=== PATIENT | male | born 2000 | race African-American/Black ===

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

== ENCOUNTER 2022-04-10 05:10 | Emergency (ER) | payer MEDICAID, OTHER ==
[~2022-04-10] VITALS: Ht 182.8 cm; Wt 72.8 kg
[2022-04-10 05:35] LABS: HEMATOCRIT 48 % (40-54); HEMOGLOBIN 16.5 g/dL (13.3-17.7); MEAN CORPUSCULAR HEMOGLOBIN 28 pg (25-34); MEAN CORPUSCULAR HGB CONC 35 g/dL (32-36); MEAN CORPUSCULAR VOLUME 82 fL (80-99); MEAN PLATELET VOLUME 10.3 fL (9.0-12.2); PLATELET COUNT 234 10^3/uL (130-400); WHITE BLOOD COUNT 21.2 10^3/uL (4.3-11.0)
[2022-04-10 05:46] LABS: ALBUMIN 4.4 GM/DL (3.2-4.5); POTASSIUM 4.1 MMOL/L (3.6-5.0)
[2022-04-10 05:48] LABS: CALCIUM 9.1 MG/DL (8.5-10.1)
[2022-04-10 05:49] LABS: TOTAL PROTEIN 7.7 GM/DL (6.4-8.2)
[2022-04-10 05:50] LABS: BILIRUBIN,TOTAL 0.4 MG/DL (0.1-1.0)
[2022-04-10 05:53] LABS: CREATININE SERUM 1.17 MG/DL (0.60-1.30)
[2022-04-10 05:54] LABS: BILIRUBIN,DIRECT 0.1 MG/DL (0.0-0.3); BILIRUBIN,INDIRECT 0.3 MG/DL
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
[2022-04-10] MEDS ORDERED: CATHETER FLUSH 10 ML SYR IV PRN (06:30)
[2022-04-10] MEDS ORDERED: IOHEXOL 350 MG/ML 100 ML (OMNIPAQUE 350) VIAL IV ONE (06:30)
[2022-04-10] MEDS ORDERED: NS 100 ML (IVPB) BAG IV ONE (06:30)
[2022-04-10 06:59] LABS: BILIRUBIN,URINE NEGATIVE (NEGATIVE); CLARITY,URINE CLEAR; COLOR,URINE YELLOW; GLUCOSE, URINE (UA) NEGATIVE (NEGATIVE); KETONES,URINE NEGATIVE (NEGATIVE); LEUKOCYTE ESTERASE ,URINE NEGATIVE (NEGATIVE); NITRITE,URINE NEGATIVE (NEGATIVE); PH,URINE 5.5 (5-9); PROTEIN,URINE NEGATIVE (NEGATIVE)
[2022-04-10 07:08] LABS: BACTERIA,URINE NEGATIVE /HPF
[2022-04-10 07:09] LABS: AMPHETAMINE SCREEN, URINE NEGATIVE (NEGATIVE); BARBITURATE SCREEN URINE NEGATIVE (NEGATIVE); BENZODIAZEPINES SCREEN URINE NEGATIVE (NEGATIVE); CANNABINOID SCREEN, URINE NEGATIVE (NEGATIVE); COCAINE SCREEN URINE NEGATIVE (NEGATIVE); METHADONE STAT NEGATIVE (NEGATIVE); OPIATE SCREEN URINE NEGATIVE (NEGATIVE); OXYCODONE STAT NEGATIVE (NEGATIVE); PROPOXYPHENE STAT NEGATIVE (NEGATIVE); TRICYCLIC ANTIDEPRESSANTS SCRE NEGATIVE (NEGATIVE)
[2022-04-10 07:10] LABS: HYALINE CASTS, URINE 0-2 /LPF
[2022-04-10] MEDS ORDERED: fentaNYL INJ 100 MCG/2 ML AMP IVP ONE (07:30)
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
[2022-04-10] MEDS ORDERED: ACHD5005 PO (07:38)
[2022-04-10 08:22] VITALS: BP 122/82
== END 2022-04-10 08:22 | disposition home or self-care (01) ==
LOC: EDUNIT# 05:10 → ER 05:12
DX: S06.0X0A Concussion without loss of consciousness, initial encounter (principal); S42.291A Other displaced fracture of upper end of right humerus, initial encounter for closed fracture; S00.83XA Contusion of other part of head, initial encounter; S80.02XA Contusion of left knee, initial encounter; K03.81 Cracked tooth; Z28.310 Unvaccinated for COVID-19; V89.0XXA Person injured in unspecified motor-vehicle accident, nontraffic, initial encounter; Y92.410 Unspecified street and highway as the place of occurrence of the external cause
CPT/HCPCS: 70450; 70486; 71045; 71260; 72125; 72170; 73030; 74177; 80048; 80076; 80306; 81000; 85027; 93005; 93041; 99284; G0480; 36415; 80320

== ENCOUNTER 2022-06-06 08:25 | Outpatient (RCR) | payer OTHER ==
[~2022-06-06 08:25] MED LIST changes: +ACHD5005 PO
== END 2022-06-07 | disposition home or self-care (01) ==
PROVIDERS: ATTEND Physician Assistant
DX: S42.201D Unspecified fracture of upper end of right humerus, subsequent encounter for fracture with routine healing (principal); J45.909 Unspecified asthma, uncomplicated; V89.2XXD Person injured in unspecified motor-vehicle accident, traffic, subsequent encounter

== ENCOUNTER → 2022-07-08 | Outpatient (RCR) | payer OTHER | END | disposition home or self-care (01) | PROVIDERS: ATTEND Physician Assistant | DX: S42.201D Unspecified fracture of upper end of right humerus, subsequent encounter for fracture with routine healing (principal); J45.909 Unspecified asthma, uncomplicated; X58.XXXD Exposure to other specified factors, subsequent encounter ==

== ENCOUNTER 2022-07-11 10:49 | Outpatient (RCR) | payer OTHER | END 2022-07-11 13:07 | disposition home or self-care (01) | PROVIDERS: ATTEND Physician Assistant | DX: S42.201D Unspecified fracture of upper end of right humerus, subsequent encounter for fracture with routine healing (principal); J45.909 Unspecified asthma, uncomplicated; V89.2XXD Person injured in unspecified motor-vehicle accident, traffic, subsequent encounter ==

== ENCOUNTER 2022-07-27 21:24 | Emergency (ER) | payer SELFPAY ==
[~2022-07-27] VITALS: Ht 177.8 cm; Wt 72.8 kg
--- NOTE | 2022-07-27 22:14 | ED Respiratory ---
General Chief Complaint: Cough/Cold/Flu Symptoms Stated Complaint: COUGH/SOA Nursing Triage Note: Pt ambulates to ED 6 with c/o shortness of breath, chest tightness and cough x 2 days, advises it got worse tonight. 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 Source: patient Exam Limitations: no limitations History of Present Illness Date Seen by Provider: Jul 27, 2022 Time Seen by Provider: 21:40 Initial Comments Patient is a 22 yo M who presents to the ED with 2 days of cough, shortness of breath, and chest tightness. Patient states he took an albuterol nebulizer treatment prior to arrival with significant improvement in the symptoms. He is accompanied by his mother. Mother states patient has had a few hours of very persistent coughing which led to them presenting to the emergency department. Patient has not had a fever. Denies any nasal congestion or body aches. Denies any chest pain but states before he took his albuterol treatment that his chest felt very tight. Allergies and Home Medications Allergies Coded Allergies: No Known Allergies (Unverified Allergy, Mild, 03/11/09) Patient Home Medication List Home Medication List Reviewed: Yes Hydrocodone/Acetaminophen (Hydrocodone-Acetamin 5-325 mg) 5 Mg-325 Mg Tablet, 1- 2 TAB PO Q4H PRN for PAIN-MODERATE (5-7) Prescribed by: FOZIA MARTINEZ on 04/10/22 0738 Review of Systems Review of Systems Constitutional: no symptoms reported EENTM: no symptoms reported Respiratory: see HPI, cough, short of breath Cardiovascular: see HPI Gastrointestinal: no symptoms reported Genitourinary: no symptoms reported Musculoskeletal: no symptoms reported Skin: no symptoms reported Past Vmfmmqe-Hflqox-Wegcfl Hx Patient Social History Tobacco Use?: No Smokeless Tobacco Frequency: Current Everyday User Use of E-Cig and/or Vaping dev: No Substance use?: No Alcohol Use?: Yes Alcohol Frequency: Once in a while Pt feels they are or have been: No Immunizations Up To Date Influenza Vaccine Up-to-Date: No; Not Current First/Initial COVID19 Vaccinat: None Seasonal Allergies Seasonal Allergies: Yes Past Medical History Surgeries: No Respiratory: Yes Asthma Cardiac: No Neurological: No Genitourinary: No Gastrointestinal: No Musculoskeletal: No Endocrine: No HEENT: No Cancer: No Psychosocial: No Integumentary: No Blood Disorders: No Family Medical History No Pertinent Family Hx Physical Exam Vital Signs - First Documented 07/27/22 21:45 Temp 36.6 Pulse 106 Resp 18 B/P (MAP) 138/84 (102) Pulse Ox 95 O2 Delivery Room Air Capillary Refill : Height: 5'10.00" Weight: 1lbs. oz. 0.261837ar; 23.00 BMI Method:Stated General Appearance: WD/WN, no apparent distress HEENT: PERRL/EOMI, normal ENT inspection, TMs normal, pharynx normal Neck: non-tender, full range of motion, supple, normal inspection Respiratory: chest non-tender, lungs clear, normal breath sounds, no respiratory distress, no accessory muscle use Cardiovascular: regular rate, rhythm Gastrointestinal: normal bowel sounds, non tender, soft Extremities: normal range of motion, non-tender, normal inspection, no pedal edema, no calf tenderness Neurologic/Psychiatric: no motor/sensory deficits, alert, normal mood/affect, oriented x 3 Skin: normal color, warm/dry Progress/Results/Core Measures Suspected Sepsis SIRS Temperature: Pulse: 106 Respiratory Rate: 18 Blood Pressure 138 /84 Mean: 102 Results/Orders Lab Results Laboratory Tests Test 07/27/22 21:59 Range/Units Influenza Type A (RT-PCR) Not Detected Not Detecte Influenza Type B (RT-PCR) Not Detected Not Detecte SARS-CoV-2 RNA (RT-PCR) Not Detected Not Detecte My Orders Orders - JAY JAY BALDERRAMA WATER PURIFIER Covid 19 Inhouse Test (07/27/22 21:48) Influenza A And B By Pcr (07/27/22 21:48) Isolation Central Supply Req (07/27/22 21:48) Chest Pa/Lat (2 View) (07/27/22 21:48) Dexamethasone Tablet (Decadron Tablet) (07/27/22 23:00) Vital Signs/I&O 07/27/22 07/27/22 07/27/22 21:45 21:45 23:15 Temp 36.6 Pulse 106 91 Resp 18 18 B/P (MAP) 138/84 (102) 113/85 Pulse Ox 95 96 O2 Delivery Room Air Room Air Room Air Capillary Refill : Blood Pressure Mean: 102 Progress Note : Progress Note Patient is nontoxic and well-hydrated on exam. No adventitious lung sounds or increased work of breathing noted. Vital signs are reassuring. No hypoxia noted. Chest x-ray obtained which is acutely negative read. COVID and flu test negative. Given patient had significant improvement with albuterol treatment, asthma exacerbation is a likely etiology of his current symptoms. This may have been mediated by some mild viral URI or environmental exposure. He was given a dose of Decadron here. Will discharge home with recommendations for supportive care and frequent albuterol usage to manage symptomology. Follow-up with PCP. Return precautions for urgent symptomology discussed. Patient verbalized understanding. Departure Impression Primary Impression: Wheezing-associated respiratory infection (WARI) Disposition: 01 HOME, SELF-CARE Condition: Stable Departure-Patient Inst. Decision time for Depature: 22:55 Referrals: NO,LOCAL PHYSICIAN (PCP/Family) Primary Care Physician Patient Instructions: Asthma, Adult ED JAY JAY BALDERRAMA APRN Jul 27, 2022 22:14
[2022-07-27 23:15] VITALS: BP 113/85
--- NOTE | 2022-07-28 06:51 | Diagnostic Imaging Report ---
INDICATION: Cough and congestion x2 days, shortness of air, history of asthma.. TECHNIQUE: Two view chest 10:11 PM CORRELATION STUDY: 04/10/2022 FINDINGS: The heart size, mediastinal configuration and pulmonary vasculature are within normal limits. The lungs are clear with no consolidating infiltrate. There is no significant pleural effusion or pneumothorax. Mild rightward curvature and/or rotation thoracic spine. Partial visualization of internal fixation hardware over the proximal right humerus. IMPRESSION: 1. Negative for acute abnormality of the chest. Dictated by: Dictated on workstation # [id number]
== END 2022-07-27 23:15 | disposition home or self-care (01) ==
LOC: EDUNIT# 21:24 → ER 21:26
DX: J98.8 Other specified respiratory disorders (principal); R06.2 Wheezing; F17.200 Nicotine dependence, unspecified, uncomplicated; Z20.822 Contact with and (suspected) exposure to COVID-19; Z28.310 Unvaccinated for COVID-19
CPT/HCPCS: 71046; 87636

== ENCOUNTER 2022-09-14 18:30 | Observation (INO) | payer SELFPAY ==
[~2022-09-14] VITALS: Ht 177.8 cm; Wt 66.7 kg
[2022-09-14] MEDS ORDERED: RT-ALBUTEROL SULF 2.5 MG/3 ML PRE-MIX VIAL ONE (18:41)
[2022-09-14] MEDS ORDERED: NS IV 1000 ML 1,000 ML IV ONE (18:45)
[2022-09-14] MEDS ORDERED: methylPREDNISolone 125 MG (Solu-MEDROL) VIAL IVP ONE (18:45)
[2022-09-14] MEDS ORDERED: MAGNESIUM 1 GM/100 ML IVPB 100 ML IV ONE ×2 (18:45→19:15)
[2022-09-14] MEDS ORDERED: RT-ALBUTEROL SULF 2.5 MG/3 ML PRE-MIX VIAL INH ONE (18:45)
[2022-09-14 18:58] LABS: BASOPHILS # (AUTO) 0.1 10^3/uL (0.0-0.1); BASOPHILS % (AUTO) 1 % (0-10); EOSINOPHILS # (AUTO) 0.9 10^3/uL (0.0-0.3); EOSINOPHILS % (AUTO) 5 % (0-10); HEMATOCRIT 49 % (40-54); LYMPHOCYTES # (AUTO) 4.3 10^3/uL (1.0-4.0); LYMPHOCYTES % (AUTO) 25 % (12-44); MEAN CORPUSCULAR HEMOGLOBIN 28 pg (25-34); MEAN CORPUSCULAR HGB CONC 34 g/dL (32-36); MEAN CORPUSCULAR VOLUME 82 fL (80-99); MEAN PLATELET VOLUME 10.3 fL (9.0-12.2); MONOCYTES # (AUTO) 1.1 10^3/uL (0.0-1.0); MONOCYTES % (AUTO) 7 % (0-12); NEUTROPHILS # (AUTO) 10.6 10^3/uL (1.8-7.8); NEUTROPHILS % (AUTO) 62 % (42-75); PLATELET COUNT 296 10^3/uL (130-400); WHITE BLOOD COUNT 17.1 10^3/uL (4.3-11.0)
[2022-09-14 18:59] LABS: ALBUMIN 4.6 GM/DL (3.2-4.5)
[2022-09-14 19:00] LABS: CHLORIDE 102 MMOL/L (98-107); POTASSIUM 3.9 MMOL/L (3.6-5.0); SODIUM 140 MMOL/L (135-145)
[2022-09-14 19:01] LABS: CALCIUM 9.6 MG/DL (8.5-10.1)
[2022-09-14 19:02] LABS: GLUCOSE 89 MG/DL (70-105); TOTAL PROTEIN 7.8 GM/DL (6.4-8.2)
[2022-09-14 19:03] LABS: CARBON DIOXIDE 22 MMOL/L (21-32)
[2022-09-14 19:04] LABS: BILIRUBIN,TOTAL 0.7 MG/DL (0.1-1.0)
[2022-09-14 19:05] LABS: ALKALINE PHOSPHATASE 78 U/L (40-136); CREATININE SERUM 1.08 MG/DL (0.60-1.30); GFR ESTIMATED 100
--- NOTE | 2022-09-14 19:05 | ED Respiratory ---
General Chief Complaint: Respiratory Problems Stated Complaint: SOA Nursing Triage Note: PT AMB TO RM 3 PT CO OF SOA, STATES HAS HX OF ASTHMA, PT HAS HAD PERSISTANT COUGH FOR A COUPLE DAYS AND HAS HAD INCREASED SOA. DENIES FEVERS. Source: patient Exam Limitations: no limitations History of Present Illness Date Seen by Provider: Sep 14, 2022 Time Seen by Provider: 18:55 Initial Comments This is a 22 yo male with history of Asthma who presented to the ER via POV with c/o difficulty breathing. Used 2 Albuterol nebs just before ED arrival with no relief of symptoms. Upon arrival is is in moderate distress and unable to speak in short sentences. Has never had this severe of Asthma exacerbation, no previous intubations for Asthma. Denies tobacco or drug use. Several friends smoke and Vape and he does have secondary smoke exposure. No recent illness. No fever, chills, chest pain, nausea, vomiting, diarrhea, abdominal pain. Mom denies any additional past medical problems. Has repair of right humerus. Allergies and Home Medications Allergies Coded Allergies: No Known Allergies (Unverified Allergy, Mild, 03/11/09) Patient Home Medication List Home Medication List Reviewed: Yes Hydrocodone/Acetaminophen (Hydrocodone-Acetamin 5-325 mg) 5 Mg-325 Mg Tablet, 1- 2 TAB PO Q4H PRN for PAIN-MODERATE (5-7) Prescribed by: FOZIA MARTINEZ on 04/10/22 0738 Review of Systems Review of Systems Constitutional: see HPI Past Pkzpvws-Wasuyv-Eexgqg Hx Patient Social History Tobacco Use?: No Substance use?: No Alcohol Use?: Yes Alcohol type: Beer Alcohol Frequency: Once in a while Pt feels they are or have been: No Immunizations Up To Date Influenza Vaccine Up-to-Date: Yes; Up-to-Date First/Initial COVID19 Vaccinat: None Second COVID19 Vaccination [place]: None Third COVID19 Vaccination Date: None Seasonal Allergies Seasonal Allergies: Yes Past Medical History Surgery/Hospitalization HX: ASHTMA, SHOULDER SURGERY Surgeries: No Respiratory: Yes Asthma Cardiac: No Neurological: No Genitourinary: No Gastrointestinal: No Musculoskeletal: No Endocrine: No HEENT: No Cancer: No Psychosocial: No Integumentary: No Blood Disorders: No Family Medical History No Pertinent Family Hx Physical Exam Vital Signs - First Documented 09/14/22 18:33 Temp 36.2 Pulse 147 Resp 18 B/P (MAP) 120/85 (97) Pulse Ox 95 O2 Delivery Nasal Cannula O2 Flow Rate 2.00 Capillary Refill : Less Than 3 Seconds Height: 5'10.00" Weight: 1lbs. oz. 0.411084vs; 20.00 BMI Method:Stated General Appearance: WD/WN, moderate distress Eyes: Bilateral Eye Normal Inspection, Bilateral Eye PERRL, Bilateral Eye EOMI HEENT: PERRL/EOMI, normal ENT inspection, pharynx normal Neck: full range of motion, normal inspection Respiratory: respiratory distress, decreased breath sounds, accessory muscle use Cardiovascular: normal peripheral pulses, regular rate, rhythm, no murmur Gastrointestinal: normal bowel sounds, non tender, soft Extremities: normal range of motion, normal inspection, normal capillary refill Neurologic/Psychiatric: no motor/sensory deficits; No alert (fatigued); oriented x 3 Skin: normal color, warm/dry Progress/Results/Core Measures Suspected Sepsis SIRS Temperature: Pulse: 147 Respiratory Rate: 18 Laboratory Tests 09/14/22 18:33: White Blood Count 17.1H Blood Pressure 120 /85 Mean: 97 Laboratory Tests 09/14/22 18:33: Creatinine 1.08, Platelet Count 296, Total Bilirubin 0.7 Results/Orders Lab Results Laboratory Tests Test 09/14/22 18:33 09/14/22 18:37 09/14/22 19:31 Range/Units White Blood Count 17.1 H 4.3-11.0 10^3/uL Red Blood Count 6.06 H 4.30-5.52 10^6/uL Hemoglobin 17.0 13.3-17.7 g/dL Hematocrit 49 40-54 % Mean Corpuscular Volume 82 80-99 fL Mean Corpuscular Hemoglobin 28 25-34 pg Mean Corpuscular Hemoglobin Concent 34 32-36 g/dL Red Cell Distribution Width 13.6 10.0-14.5 % Platelet Count 296 130-400 10^3/uL Mean Platelet Volume 10.3 9.0-12.2 fL Immature Granulocyte % (Auto) 0 % Neutrophils (%) (Auto) 62 42-75 % Lymphocytes (%) (Auto) 25 12-44 % Monocytes (%) (Auto) 7 0-12 % Eosinophils (%) (Auto) 5 0-10 % Basophils (%) (Auto) 1 0-10 % Neutrophils # (Auto) 10.6 H 1.8-7.8 10^3/uL Lymphocytes # (Auto) 4.3 H 1.0-4.0 10^3/uL Monocytes # (Auto) 1.1 H 0.0-1.0 10^3/uL Eosinophils # (Auto) 0.9 H 0.0-0.3 10^3/uL Basophils # (Auto) 0.1 0.0-0.1 10^3/uL Immature Granulocyte # (Auto) 0.0 0.0-0.1 10^3/uL Neutrophils % (Manual) 56 % Lymphocytes % (Manual) 29 % Monocytes % (Manual) 10 % Eosinophils % (Manual) 5 % Microcytosis SLIGHT Sodium Level 140 135-145 MMOL/L Potassium Level 3.9 3.6-5.0 MMOL/L Chloride Level 102 98-107 MMOL/L Carbon Dioxide Level 22 21-32 MMOL/L Anion Gap 16 H 5-14 MMOL/L Blood Urea Nitrogen 9 7-18 MG/DL Creatinine 1.08 0.60-1.30 MG/DL Estimat Glomerular Filtration Rate 100 BUN/Creatinine Ratio 8 Glucose Level 89 70-105 MG/DL Calcium Level 9.6 8.5-10.1 MG/DL Corrected Calcium 8.5-10.1 MG/DL Total Bilirubin 0.7 0.1-1.0 MG/DL Aspartate Amino Transf (AST/SGOT) 39 H 5-34 U/L Alanine Aminotransferase (ALT/SGPT) 34 0-55 U/L Alkaline Phosphatase 78 40-136 U/L Total Protein 7.8 6.4-8.2 GM/DL Albumin 4.6 H 3.2-4.5 GM/DL My Orders Orders - CHAUNCEY ASHRAF LIVE STUDY MANAGER Albuterol Pre-Mix Nebs (Rt) (Proventil (09/14/22 18:45) Svn Small Volume Nebulizer (09/14/22 18:41) Magnesium 1 Gm/100 Ml Ivpb (Magnesium Patel (09/14/22 18:45) Ns Iv 1000 Ml (Sodium Chloride 0.9%) (09/14/22 18:45) Methylprednisolone Sod Succ (Solu-Medrol (09/14/22 18:45) Chest 1 View, Ap/Pa Only (09/14/22 18:51) Cbc With Automated Diff (09/14/22 18:51) Comprehensive Metabolic Panel (09/14/22 18:51) Manual Differential (09/14/22 18:33) Magnesium 1 Gm/100 Ml Ivpb (Magnesium Patel (09/14/22 19:15) Covid 19 Inhouse Test (09/14/22 19:16) Influenza A And B By Pcr (09/14/22 19:16) Arterial Blood Gas (09/14/22 19:20) Medications Given in ED Current Medications Medications Dose Ordered Sig/Xavi Route Start Time Stop Time Status Last Admin Dose Admin Albuterol Sulfate 12.5 mg ONCE ONCE INH 09/14/22 18:45 09/14/22 18:46 DC 09/14/22 18:48 12.5 MG Magnesium Sulfate/ Dextrose 100 ml @ 100 mls/hr ONCE ONCE IV 09/14/22 19:15 09/14/22 20:14 09/14/22 19:09 100 MLS/HR Magnesium Sulfate/ Dextrose 100 ml @ 0 mls/hr ONCE ONCE IV 09/14/22 18:45 09/14/22 18:46 DC 09/14/22 18:52 1,000 MLS/HR Methylprednisolone Sodium Succinate 125 mg ONCE ONCE IVP 09/14/22 18:45 09/14/22 18:47 DC 09/14/22 19:09 125 MG Sodium Chloride 1,000 ml @ 999 mls/hr ONCE ONCE IV 09/14/22 18:45 09/14/22 19:45 09/14/22 18:48 999 MLS/HR Vital Signs/I&O 09/14/22 09/14/22 09/14/22 18:33 18:35 18:49 Temp 36.2 Pulse 147 Resp 18 B/P (MAP) 120/85 (97) Pulse Ox 95 93 O2 Delivery Nasal Cannula Nasal Cannula Nasal Cannula O2 Flow Rate 2.00 2.00 2.00 2.00 Capillary Refill : Less Than 3 Seconds Blood Pressure Mean: 97 Progress Note : Progress Note Upon arrival patient in moderate distress he has significant increased work of breathing, tachycardia with a rate in the 140s, oxygen saturation 88 to 90% on room air. He was placed on oxygen at 2 L via nasal cannula to keep sats 94%. Orders placed for hour-long albuterol neb. He is having severe exacerbation of his Asthma. Orders given for Magnesium 2gm IV over 20 minutes, NS 1 liter bolus for BP support, and Solumedrol 125mg IVP. Added basic labs CBC, CMP, ABG, COVID, and Chest x-ray. Mom is at bedside and chief contributor to HPI. Labs reviewed, relatively unremarkable. CBC: WBC-17.1, Hgb-17, Hct-49, Plt-296, CMP: electrolytes normal, GAP-16, AST-39, COVID negative. Improved air movement in bilateral upper lobes, diffuse expiratory wheezing. I reviewed his CXR, has hyperinflated lungs but otherwise negative for acute pathology, pending radiology review. Discussed case with Dr. Ramirez, hospitalist information writer. Will admit inpatient ICU, request update with ABG results. Final CXR report negative. ABG results reviewed with Dr. Ramirez: PH-7.39, CO2-38, PO2-69, HCO3-23, SpO2- 97%. Request MAT protocol and continued Solumedrol. Will admit observation to ICU. Family and patient updated regarding labs and plan for ICU admission, they are agreeable with plan. Diagnostic Imaging Diagonstic Imaging: Xray Plain Films/CT/US/NM/MRI: chest Comments [facility]. [place], [place] NAME: GARRY [facility]CL[facility]ON [facility] REC#: [id number] PT STATUS: REG ER : 2000 PHYSICIAN: CHAUNCEY ASHRAF APRN ADMIT DATE: 09/14/22/ER Signed Date of Exam:09/14/22 CHEST 1 VIEW, AP/PA ONLY EXAMINATION: Chest radiograph, portable AP view. DATE: 09/14/2022 7:07 PM INDICATION: 22-year-old male, shortness of breath. Cough. COMPARISON: April 10, 2022. FINDINGS: Heart size and mediastinal contours are unchanged. There is no identified pneumothorax. There is no large pleural effusion. There is no identified focal airspace consolidation. There is sideplate and screw fixation hardware at the level of the right proximal humerus with a fracture deformity at the level of the humeral neck. IMPRESSION: No acute cardiopulmonary abnormality. Dictated by: Dictated on workstation # [id number] Dict: 09/14/221907 Trans: 09/14/221924 [facility] [id number] Interpreted by: JAZLYN BURKS MD Electronically signed by: JAZLYN BURKS MD 09/14/221924 Reviewed: Reviewed by Me Departure Communication (Admissions) Time/Spoke to Admitting Phy: 19:[address] Ramirez, hospitalist information writer, will admit inpatient ICU for severe exacerbation of Asthma. Time/Spoke to Consulting Phy: 19:52 Reviewed case with EICU physician at this time. No additional orders. Impression Primary Impression: Asthma with severe exacerbation Disposition: ADMITTED INPATIENT Condition: Stable Admissions Decision to Admit Reason: Admit from ER (General) Decision to Admit/Date: Sep 14, 2022 Time/Decision to Admit Time: 19:15 Departure-Patient Inst. Referrals: [facility]/JOSI[facility] (PCP/Family) Primary Care Physician Copy Copies To 1: [facility]/CHAUNCEY FIGUEROA LIVE STUDY MANAGER Sep 14, 2022 19:05
[2022-09-14 19:07] LABS: BUN/CREATININE RATIO 8
[2022-09-14 19:08] LABS: ALANINE AMINOTRANSFERASE 34 U/L (0-55)
--- NOTE | 2022-09-14 19:11 | Diagnostic Imaging Report ---
EXAMINATION: Chest radiograph, portable AP view. DATE: 09/14/2022 7:07 PM INDICATION: 22-year-old male, shortness of breath. Cough. COMPARISON: April 10, 2022. FINDINGS: Heart size and mediastinal contours are unchanged. There is no identified pneumothorax. There is no large pleural effusion. There is no identified focal airspace consolidation. There is sideplate and screw fixation hardware at the level of the right proximal humerus with a fracture deformity at the level of the humeral neck. IMPRESSION: No acute cardiopulmonary abnormality. Dictated by: Dictated on workstation # [id number]
[2022-09-14 19:25] LABS: EOSINOPHILS % (MANUAL) 5 %; LYMPHOCYTES % (MANUAL) 29 %; MICROCYTOSIS SLIGHT; MONOCYTES % (MANUAL) 10 %; NEUTROPHILS % (MANUAL) 56 %
[2022-09-14 19:45] LABS: ABG BASE EXCESS -1.7 MMOL/L (-2.5-2.5); ABG OXYGEN SATURATION 97 % (94-100); ABG PCO2 38 MMHG (35-45); ABG PH 7.39 (7.37-7.43); ABG PO2 69 MMHG (79-93); ABG TCO2 23.8 MMOL/L (21.0-31.0)
[2022-09-14 19:46] LABS: ALLENS TEST YES-POS
[2022-09-14 19:47] LABS: INSPIRED O2 2L; PATIENT TEMP 36.2; VENTILATOR NO
--- NOTE | 2022-09-14 20:08 | Tele-ICU Consult ---
History of Present Illness History of Present Illness Date Seen by Provider: Sep 14, 2022 Time Seen by Provider: 20:01 History of Present Illness eICU consult, Hx and PE from talking to ED MD and DISASTER DIRECTOR 22 yo M with known Hx of asthma developed cough, SOB and wheezing over last few days.Came to to ED with marked increase in WOB. Given prolonged Rx of nebulized albuterol, IV Magnesium sulfate, also given IV Medrol No Hx of previous intubation, Was exposed to cigarette smoke, does not know of other triggers. COVID and serology negative ABG 7.39//69, CXR is clear but hyperinflated CBC shows WBC 15 Hb 17 suggesting dehydration, No eosinophilia on CBC According to ED note only able to speak in short sentences but is doing a little better and does not look like needs to be intubated No allergies noted, Only irritant exposure lately is ccigarette smoke at a casino Allergies and Home Medications Allergies Coded Allergies: NKANo Known Allergies (Unverified Allergy, Mild, 03/11/09) Home Medications Hydrocodone/Acetaminophen 5 Mg-325 Mg Tablet, 1-2 TAB PO Q4H PRN for PAIN- MODERATE (5-7) Prescribed by: FOZIA MARTINEZ on 04/10/22 0738 Past Medical/Social/Family Hx Patient Social History Tobacco Use?: No Substance use?: No Alcohol Use?: Yes Alcohol type: Beer Alcohol Frequency: Once in a while Pt stated abuse/neglect: No Immunizations Up To Date Influenza Vaccine Up-to-Date: Yes; Up-to-Date First/Initial COVID19 Vaccinat: None Second COVID19 Vaccination Chinmay: None Tetanus Booster (TDap): More Than 5 Years Current Status Advance Directives: No Communicates: Verbally Primary Language: Northern Irish Preferred Spoken Language: Northern Irish Is interpretation needed?: No Implanted or Applied Medical D: Orthopedic hardware Review of Systems Constitutional: see HPI Respiratory: see HPI Focused Exam Height, Weight, BMI Height: 5'10.00" Weight: 1lbs. oz. 0.307974jv; 20.00 BMI Method:Stated Exam Exam Patient acknowledged, consented, and participated in this virtual visit which was conducted using real time audio/video Vital Signs Date Time Temp Pulse Resp B/P (MAP) Pulse Ox O2 Delivery O2 Flow Rate FiO2 09/14/22 18:49 93 Nasal Cannula 2.00 09/14/22 18:35 Nasal Cannula 2.00 2.00 09/14/22 18:33 36.2 147 18 120/85 (97) 95 Nasal Cannula 2.00 Height & Weight Height: 5'10.00" Weight: 1lbs. oz. 0.599066sc; 20.00 BMI Method:Stated General Appearance: Moderate Distress Respiratory: Decreased Breath Sounds, Respiratory Distress, Wheezing Cardiovascular: Tachycardia Capillary Refill: Less Than 3 Seconds Gastrointestinal: normal bowel sounds, non tender, soft Extremity: No Pedal Edema Results Lab Laboratory Tests 09/14/22 18:33 Assessment/Plan Assessment/Plan Severe episode of bronchospasm, will continue steroids and neb albuterol monior closely for increased, and for need to be intubated. According to RN at 21:20 WOB is less Critical Care: Critically Ill Patient Time spent with patient (mins): 30 BOBBI LUNDBERG MD Sep 14, 2022 20:08
[2022-09-14] MEDS ORDERED: ACETAMINOPHEN 325 MG TABLET PO PRN (20:45)
[2022-09-14] MEDS ORDERED: ONDANSETRON 4 MG/2 ML (SDV) Z0FRAN IV PRN (20:45)
[2022-09-14] MEDS ORDERED: CATHETER FLUSH 10 ML SYR IVP PRN (20:45)
[2022-09-14] MEDS ORDERED: RT-ALBUTEROL SULF 2.5 MG/3 ML PRE-MIX VIAL INH PRN (21:15)
[2022-09-14] MEDS: CATHETER FLUSH 10 ML SYR IVP SCH (21:45)
[2022-09-14] MEDS: RT-ALBUTEROL SULF 2.5 MG/3 ML PRE-MIX VIAL INH SCH (23:05)
[2022-09-14] MEDS: methylPREDNISolone 125 MG (Solu-MEDROL) VIAL IVP SCH (23:11)
[2022-09-15] MEDS: RT-ALBUTEROL SULF 2.5 MG/3 ML PRE-MIX VIAL INH SCH ×2 (02:16→06:32)
[2022-09-15] MEDS: CATHETER FLUSH 10 ML SYR IVP SCH (05:08)
[2022-09-15] MEDS: methylPREDNISolone 125 MG (Solu-MEDROL) VIAL IVP SCH (05:08)
[2022-09-15 05:56] LABS: BASOPHILS % (AUTO) 0 % (0-10); EOSINOPHILS % (AUTO) 0 % (0-10); HEMATOCRIT 44 % (40-54); LYMPHOCYTES # (AUTO) 0.9 10^3/uL (1.0-4.0); LYMPHOCYTES % (AUTO) 15 % (12-44); MEAN CORPUSCULAR HEMOGLOBIN 28 pg (25-34); MEAN CORPUSCULAR HGB CONC 34 g/dL (32-36); MEAN CORPUSCULAR VOLUME 82 fL (80-99); MEAN PLATELET VOLUME 10.1 fL (9.0-12.2); MONOCYTES % (AUTO) 1 % (0-12); NEUTROPHILS # (AUTO) 5.1 10^3/uL (1.8-7.8); NEUTROPHILS % (AUTO) 84 % (42-75); PLATELET COUNT 220 10^3/uL (130-400); WHITE BLOOD COUNT 6.1 10^3/uL (4.3-11.0)
[2022-09-15 06:21] LABS: ALBUMIN 4.2 GM/DL (3.2-4.5); BILIRUBIN,TOTAL 0.7 MG/DL (0.1-1.0); CALCIUM 9.4 MG/DL (8.5-10.1); CREATININE SERUM 0.88 MG/DL (0.60-1.30); MAGNESIUM 2.2 MG/DL (1.6-2.4); PHOSPHORUS 2.4 MG/DL (2.3-4.7); POTASSIUM 3.8 MMOL/L (3.6-5.0)
--- NOTE | 2022-09-15 07:46 | Tele-ICU Progress Note ---
Subjective Date Seen by a Provider: Sep 15, 2022 Sepsis Event Evaluation Height, Weight, BMI Height: 5'10.00" Weight: 1lbs. oz. 0.359002um; 21.09 BMI Method:Stated Exam Exam Patient acknowledged, consented, and participated in this virtual visit which was conducted using real time audio/video Vital Signs Date Time Temp Pulse Resp B/P (MAP) Pulse Ox O2 Delivery O2 Flow Rate FiO2 09/15/22 06:32 98 Nasal Cannula 2.00 09/15/22 06:00 95 26 123/69 (87) 94 Nasal Cannula 2.00 09/15/22 05:00 98 21 124/67 (86) 94 Nasal Cannula 2.00 09/15/22 04:55 36.7 09/15/22 04:00 96 16 116/84 (95) 96 Nasal Cannula 2.00 09/15/22 04:00 96 Nasal Cannula 2.00 09/15/22 03:00 96 22 114/65 (81) 96 Nasal Cannula 2.00 09/15/22 02:18 96 Nasal Cannula 2.00 09/15/22 02:00 96 22 114/61 (78) 96 Nasal Cannula 2.00 09/15/22 01:00 106 09/15/22 01:00 99 22 108/55 (72) 96 Nasal Cannula 2.00 09/15/22 00:00 112 24 104/57 (73) 97 Nasal Cannula 2.00 09/15/22 00:00 36.9 09/14/22 23:59 96 Nasal Cannula 2.00 09/14/22 23:06 96 Nasal Cannula 2.00 09/14/22 23:00 114 25 104/62 (76) 97 Nasal Cannula 2.00 09/14/22 22:15 128 32 109/52 (71) 95 Nasal Cannula 2.00 09/14/22 21:45 128 34 94 Nasal Cannula 2.00 09/14/22 21:15 128 27 93 Nasal Cannula 2.00 09/14/22 21:11 96 Nasal Cannula 2.00 09/14/22 21:00 128 21 106/57 (73) 93 Nasal Cannula 2.00 09/14/22 20:59 93 28 09/14/22 20:58 95 Nasal Cannula 2.00 09/14/22 20:45 131 21 116/64 (81) 94 Nasal Cannula 2.00 09/14/22 20:43 132 09/14/22 20:30 131 21 126/73 (90) 94 Nasal Cannula 2.00 09/14/22 20:21 36.2 138 18 118/67 92 Nasal Cannula 2.00 09/14/22 18:49 93 Nasal Cannula 2.00 09/14/22 18:35 Nasal Cannula 2.00 2.00 09/14/22 18:33 36.2 147 18 120/85 (97) 95 Nasal Cannula 2.00 I & O 09/15/22 07:00 Intake Total 1850 ml Output Total 1400 ml Balance 450 ml Height & Weight Height: 5'10.00" Weight: 1lbs. oz. 0.468837pp; 21.09 BMI Method:Stated General Appearance: Moderate Distress Respiratory: Decreased Breath Sounds, Respiratory Distress, Wheezing Cardiovascular: Tachycardia Capillary Refill: Less Than 3 Seconds Gastrointestinal: normal bowel sounds, non tender, soft Extremity: No Pedal Edema Results Lab Laboratory Tests 09/14/22 18:33 09/15/22 05:49 ANGELO WILLS MD Sep 15, 2022 07:46
[2022-09-15] MEDS ORDERED: RT-ALBUINH INH (09:00)
[2022-09-15] MEDS ORDERED: PRD20T PO (09:00)
--- NOTE | 2022-09-15 09:12 | Short Stay Summary-Hospitalist ---
History of Present Illness HPI/Chief Complaint This is a 22 yo male with history of Asthma who presented to the ER via POV with c/o difficulty breathing. Used 2 Albuterol nebs just before ED arrival with no relief of symptoms. Upon arrival is is in moderate distress and unable to speak in short sentences. Has never had this severe of Asthma exacerbation, no previou s intubations for Asthma. Denies tobacco or drug use. Several friends smoke and Vape and he does have secondary smoke exposure. No recent illness. No fever, chills, chest pain, nausea, vomiting, diarrhea, abdominal pain. Mom denies any additional past medical problems. Upon my arrival with been 3 hours since patient's last breathing treatment he was sleeping soundly with no evidence for respiratory distress. He aroused easily reporting that he is feeling much better with no cough denied night s weats chills fever. He had no antecedent URI type symptoms such as throat or nose irritation or congestion. This was the worst asthma attack that he had had and he had a attributes it smoke exposure. He reports that he feels like he is back to baseline with no chest discomfort or shortness of breath. He reports previously while he does have an albuterol inhaler his only inhaler it had been a number of weeks before he had had to use his inhaler. He has had no previous episodes of intubation or hospitalization for asthma attacks with many years since his last emergency room visit for asthma. Date Seen 09/15/22 Time Seen by a Provider: 07:30 Attending Physician [facility] PCP Admitting Physician: Keshawn Ramirez MD Attending Physician: Keshawn Ramirez MD Referring Physician Date of Admission Sep 14, 2022 at 19:29 Home Medications & Allergies Home Medications Reviewed patient Home Medication Reconciliation performed by pharmacy medication reconciliations product support technician and/or nursing. Patients Allergies have been reviewed. Allergies Allergies Coded Allergies NKANo Known Allergies (Unverified Allergy, Mild, 03/11/09) Past Holegfu-Qpwftf-Ggkfuc Hx Patient Social History Tobacco Use?: No Smoking Status: Never a Smoker Smokeless Tobacco Frequency: Never a User Use of E-Cig and/or Vaping dev: No Substance use?: No Alcohol Use?: Yes Alcohol type: Beer Additional alcohol type: occassional Alcohol Frequency: Rarely Pt feels they are or have been: No Immunizations Up To Date Date of Influenza Vaccine: Apr 22, 2012 First/Initial COVID19 Vaccinat: None Second COVID19 Vaccination Chinmay: None Tetanus Booster (TDap): Unknown Seasonal Allergies Seasonal Allergies: Yes Current Status Advance Directives: No Communicates: Verbally Primary Language: Bulgarian Preferred Spoken Language: Bulgarian Is interpretation needed?: No Sensory deficits: Vision impairment Additional sensory deficits: wears glasses Implanted or Applied Medical D: None Past Medical History Asthma Blood Disorders: No Family Medical History No Pertinent Family Hx Review of Systems Constitutional: see HPI Physical Exam Physical Exam Vital Signs Vital Signs - First Documented 09/14/22 09/14/22 18:33 20:59 Temp 36.2 Pulse 147 Resp 18 B/P (MAP) 120/85 (97) Pulse Ox 95 O2 Delivery Nasal Cannula O2 Flow Rate 2.00 FiO2 28 Capillary Refill : Less Than 3 Seconds Height, Weight, BMI Height: 5'10.00" Weight: 1lbs. oz. 0.975946zw; 21.09 BMI Method:Stated General Appearance: No Apparent Distress Eyes: Bilateral Eye Normal Inspection, Bilateral Eye PERRL, Bilateral Eye EOMI Respiratory: Chest Non Tender, Lungs Clear, Normal Breath Sounds, No Accessory Muscle Use, No Respiratory Distress Cardiovascular: Regular Rate, Rhythm, No Edema, No Gallop, No JVD, No Murmur, Normal Peripheral Pulses Gastrointestinal: Normal Bowel Sounds, No Organomegaly, No Pulsatile Mass, Non Tender, Soft Extremity: No Pedal Edema Results Results/Procedures Labs Laboratory Tests 09/14/22 18:33 09/15/22 05:49 Patient resulted labs reviewed. Short Stay Diagnosis Discharge Diagnosis-Short Stay Admission Diagnosis 1. Acute asthma exacerbation with secondary acute respiratory failure. Final Discharge Diagnosis As per admission diagnosis. Conclusion Plan After requiring magnesium and a prolonged albuterol treatment via maxi mist in the emergency room with Solu-Medrol patient had rapid resolution of wheezing and was wheeze free with normal oxygen saturations and no evidence for respiratory distress. We did discuss the small possibility of exacerbation with a high likelihood this would be mitigated by continuing oral prednisone for which she is being discharged on 40 mg for 3 days 20 mg for 3 days then off. We discussed that if this did trigger the need for more frequent Ventolin usage she should be on an anti-antiinflammatory inhaler and that he needed to [facility] with [facility] for ongoing monitoring of his asthma. He had not seen anybody since Ryne Lincoln had been his PCP. Prednisone and Ventolin MDI were sent electronically to [facility]. Copy Copies To 1: [facility]/KESHAWN RAM MD Sep 15, 2022 09:12
[2022-09-15 09:37] VITALS: BP 126/65
[2022-09-15] MEDS ORDERED: methylPREDNISolone 40 MG/ML (Solu-MEDROL) VIAL IV SCH (14:00)
== END 2022-09-15 08:56 | disposition home or self-care (01) ==
LOC: EDUNIT# 18:30 → ER 18:31 → ICU 19:29 → UNDOADMOB 19:29 → ICU 21:04 → UNDODISOB 09-15 08:56
PROVIDERS: ADMIT Internal Medicine; ATTEND Internal Medicine
DX: J45.901 Unspecified asthma with (acute) exacerbation (principal); J96.00 Acute respiratory failure, unspecified whether with hypoxia or hypercapnia; Z28.310 Unvaccinated for COVID-19
CPT/HCPCS: 71045; 80053 ×2; 82805; 83735; 84100; 85007; 85025; 85027; 87081; 87636; 94640 ×3; 94644; 96376 ×2; 99285; G0378; 36415

== ENCOUNTER 2023-03-02 10:41 | Emergency (ER) | payer SELFPAY ==
[~2023-03-02] VITALS: Ht 177 cm; Wt 68.0 kg
[~2023-03-02 10:41] MED LIST changes: +PRD20T PO; +RT-ALBUINH INH
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
[2023-03-02] MEDS ORDERED: RT-ALBUTEROL/IPRATROPIUM 3 ML (DUONEB) VIAL INH ONE (11:00)
[2023-03-02] MEDS ORDERED: RT-ALBUINH INH (11:20)
[2023-03-02 11:30] VITALS: BP 119/73
== END 2023-03-02 11:30 | disposition home or self-care (01) ==
LOC: EDUNIT# 10:41 → ER 10:43
DX: J45.998 Other asthma (principal); Z28.310 Unvaccinated for COVID-19
CPT/HCPCS: 94640; 99282

== ENCOUNTER 2023-07-11 12:48 | Emergency (ER) | payer SELFPAY ==
[~2023-07-11] VITALS: Ht 177.8 cm; Wt 72.5 kg
[2023-07-11] MEDS ORDERED: NS IV 1000 ML 1,000 ML ONE (12:56)
[2023-07-11] MEDS ORDERED: NS IV 1000 ML 1,000 ML IV STA (12:58)
[2023-07-11] MEDS ORDERED: Tetanus/Diphtheria/Pertussis (Acell) ADULT Vaccine 0.5 ML IM ONE (13:00)
[2023-07-11 13:04] LABS: BASOPHILS # (AUTO) 0.1 10^3/uL (0.0-0.1); BASOPHILS % (AUTO) 1 % (0-10); EOSINOPHILS # (AUTO) 0.6 10^3/uL (0.0-0.3); EOSINOPHILS % (AUTO) 4 % (0-10); HEMATOCRIT 54 % (40-54); HEMOGLOBIN 17.8 g/dL (13.3-17.7); LYMPHOCYTES # (AUTO) 3.1 10^3/uL (1.0-4.0); LYMPHOCYTES % (AUTO) 19 % (12-44); MEAN CORPUSCULAR HEMOGLOBIN 29 pg (25-34); MEAN CORPUSCULAR HGB CONC 33 g/dL (32-36); MEAN CORPUSCULAR VOLUME 87 fL (80-99); MEAN PLATELET VOLUME 10.5 fL (9.0-12.2); MONOCYTES # (AUTO) 1.2 10^3/uL (0.0-1.0); MONOCYTES % (AUTO) 7 % (0-12); NEUTROPHILS % (AUTO) 68 % (42-75); PLATELET COUNT 263 10^3/uL (130-400); WHITE BLOOD COUNT 16.2 10^3/uL (4.3-11.0)
[2023-07-11 13:09] LABS: ALBUMIN 5.1 GM/DL (3.2-4.5); CHLORIDE 100 MMOL/L (98-107); POTASSIUM 4.1 MMOL/L (3.6-5.0); SODIUM 139 MMOL/L (135-145)
[2023-07-11 13:11] LABS: GLUCOSE 94 MG/DL (70-105); TOTAL PROTEIN 8.8 GM/DL (6.4-8.2)
[2023-07-11 13:12] LABS: CARBON DIOXIDE 12 MMOL/L (21-32)
[2023-07-11 13:13] LABS: BILIRUBIN,TOTAL 0.7 MG/DL (0.1-1.0)
[2023-07-11 13:15] LABS: ALKALINE PHOSPHATASE 91 U/L (40-136); CREATININE SERUM 1.36 MG/DL (0.60-1.30); GFR ESTIMATED 75
[2023-07-11 13:16] LABS: BUN/CREATININE RATIO 7
[2023-07-11 13:18] LABS: ALANINE AMINOTRANSFERASE 73 U/L (0-55); MAGNESIUM 2.2 MG/DL (1.6-2.4)
[2023-07-11 13:19] LABS: EOSINOPHILS % (MANUAL) 5 %; LYMPHOCYTES % (MANUAL) 20 %; MONOCYTES % (MANUAL) 7 %; NEUTROPHILS % (MANUAL) 68 %; RBC MORPH NORMAL
--- NOTE | 2023-07-11 13:22 | Diagnostic Imaging Report ---
INDICATION: Syncope, fall striking head. COMPARISON: 09/14/2022. FINDINGS: Lungs are mildly hyperexpanded in a symmetric fashion. There is some mild prominence and thickening of the central airways, which may reflect a viral pattern or reactive airway disease and bronchitis. No consolidating pneumonia. No chest fracture. No hemothorax. No pneumothorax. IMPRESSION: No post-traumatic sequelae. No pneumonia; however, some mild prominence of the perihilar lung markings and airway thickening as discussed. Dictated by: Dictated on workstation # [id number]
[2023-07-11 13:38] LABS: TSH (THYROID ANALYZER) 3.77 UIU/ML (0.35-4.94)
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
--- NOTE | 2023-07-11 14:09 | ED General ---
General Chief Complaint: Trauma-Non Activation Stated Complaint: SYNCOPE Nursing Triage Note: PT TO [facility] BY [facility] WITH C/O SYNCOPAL EPISODE, STRIKING HEAD ON THE FLOOR. PT WAS DOWN APPROX 2-5 MIN ACCORDING TO FRIEND ON SCENE. PT A/O ON ARRIVAL Source of Information: Patient, EMS Exam Limitations: No Limitations History of Present Illness Date Seen by Provider: Jul 11, 2023 Time Seen by Provider: 12:56 Initial Comments Here by EMS with report of what appears to be a syncopal episode friend's house. He was working on setting up cameras at the house and was holding a camera up for a while that was not too big and then suddenly fell to the ground and hit his right forehead with some bleeding noted. No shaking noted. EMS was called and he was responding. He apparently was a little sweaty initially and then that improved. He did have normal blood sugar per EMS with normal vital signs on their arrival and continued to improve until arrival here. On arrival here, patient does not remember incident but is talking, is alert and awake and oriented x3. He is unsure of his last tetanus shot. Denies any significant pain currently. He arrives in c-collar due to question of bruising to the back of the neck although this may be birthmark. Does have moderate hematoma to the right forehead and right lateral brow. Denies any vision changes or facial pain. Timing/Duration: 1/2 Hour Severity: Moderate Associated Systoms: No Nausea/Vomiting; Syncope Allergies and Home Medications Allergies Coded Allergies: NKANo Known Allergies (Unverified Allergy, Mild, 03/11/09) Patient Home Medication List Home Medication List Reviewed: Yes Albuterol Sulfate (Ventolin Hfa) 1 Puff Puff, 2 PUFF INH Q4H Prescribed by: DIANELYS MANUEL on 09/15/22 0900 Albuterol Sulfate (Ventolin Hfa) 1 Puff Puff, 2 PUFF INH Q4H Prescribed by: CAROL MICHELE MD on 03/02/23 1120 Prednisone (Prednisone) 20 Mg Tab, 20 MG PO DAILY Prescribed by: DIANELYS MANUEL on 09/15/22 0900 Review of Systems Review of Systems Constitutional: see HPI, diaphoresis; No fever EENTM: No nose congestion, No throat pain Respiratory: No cough, No short of breath Cardiovascular: No chest pain, No edema Gastrointestinal: No nausea, No vomiting Genitourinary: no symptoms reported Musculoskeletal: No back pain, No neck pain Skin: change in color, lesions Psychiatric/Neurological: Denies Headache, Denies Seizure Past Xiubete-Alyyxm-Paalru Hx Patient Social History Tobacco Use?: Yes Use of E-Cig and/or Vaping dev: No Substance use?: No Alcohol Use?: Yes Alcohol Frequency: Once in a while Pt feels they are or have been: No Immunizations Up To Date First/Initial COVID19 Vaccinat: None Second COVID19 Vaccination Chinmay: None Third COVID19 Vaccination Date: None Seasonal Allergies Seasonal Allergies: Yes Past Medical History Surgery/Hospitalization HX: ASHTMA, SHOULDER SURGERY Surgeries: No Respiratory: Yes Asthma Cardiac: No Neurological: No Genitourinary: No Gastrointestinal: No Musculoskeletal: No Endocrine: No HEENT: No Cancer: No Psychosocial: No Integumentary: No Blood Disorders: No Family Medical History Reviewed Nursing Family Hx No Pertinent Family Hx Physical Exam Vital Signs Vital Signs - First Documented 07/11/23 12:50 Temp 35.8 Pulse 110 Resp 18 B/P (MAP) 140/83 (102) Pulse Ox 96 O2 Delivery Room Air Capillary Refill : Height, Weight, BMI Height: 5'10.00" Weight: 1lbs. oz. 0.780994me; 22.00 BMI Method:Stated General Appearance: No Apparent Distress, WD/WN HEENT: PERRL/EOMI, Pharynx Normal, Other (3 x 4 cm hematoma to the right forehead with small central half centimeter laceration without bleeding and abrasion noted to the right brow with bruising to the upper lid without eye inju ry or disturbance.) Neck: Full Range of Motion (Noted after c-collar removal after clearance from CT), Non Tender, Supple Respiratory: Lungs Clear, Normal Breath Sounds Cardiovascular: Regular Rate, Rhythm, No Murmur Gastrointestinal: Non Tender, Soft Back: Normal Inspection, No CVA Tenderness, No Vertebral Tenderness Extremity: Normal Range of Motion, Non Tender Neurologic/Psychiatric: Alert, Oriented x3 Skin: Erythema, Other (Abrasions as noted above as well as contusion) Procedures/Interventions Wound Location: Face Other Wound Location Right forehead Wound Length (cm): 1 Wound's Depth, Shape: superficial Wound Explored: contaminated Irrigated w/ Saline (ccs): 50 Betadine Prep?: Yes Wound Debrided: minimal Other Closure Supply: Wound Adhesive Progress Wound cleaned with Betasept and saline and then rinsed. Bleeding controlled. Closed with wound adhesive with good approximation. Tolerated procedure well with no complications. Progress/Results/Core Measures Suspected Sepsis SIRS Temperature: Pulse: 110 Respiratory Rate: 18 Laboratory Tests 07/11/23 12:53: White Blood Count 16.2H Blood Pressure 140 /83 Mean: 102 Laboratory Tests 07/11/23 12:53: Creatinine 1.36H, Platelet Count 263, Total Bilirubin 0.7 Results/Orders Lab Results Laboratory Tests Test 07/11/23 12:53 07/11/23 12:54 Range/Units White Blood Count 16.2 H 4.3-11.0 10^3/uL Red Blood Count 6.18 H 4.30-5.52 10^6/uL Hemoglobin 17.8 H 13.3-17.7 g/dL Hematocrit 54 40-54 % Mean Corpuscular Volume 87 80-99 fL Mean Corpuscular Hemoglobin 29 25-34 pg Mean Corpuscular Hemoglobin Concent 33 32-36 g/dL Red Cell Distribution Width 12.7 10.0-14.5 % Platelet Count 263 130-400 10^3/uL Mean Platelet Volume 10.5 9.0-12.2 fL Immature Granulocyte % (Auto) 1 % Neutrophils (%) (Auto) 68 42-75 % Lymphocytes (%) (Auto) 19 12-44 % Monocytes (%) (Auto) 7 0-12 % Eosinophils (%) (Auto) 4 0-10 % Basophils (%) (Auto) 1 0-10 % Neutrophils # (Auto) 11.0 H 1.8-7.8 10^3/uL Lymphocytes # (Auto) 3.1 1.0-4.0 10^3/uL Monocytes # (Auto) 1.2 H 0.0-1.0 10^3/uL Eosinophils # (Auto) 0.6 H 0.0-0.3 10^3/uL Basophils # (Auto) 0.1 0.0-0.1 10^3/uL Immature Granulocyte # (Auto) 0.1 0.0-0.1 10^3/uL Neutrophils % (Manual) 68 % Lymphocytes % (Manual) 20 % Monocytes % (Manual) 7 % Eosinophils % (Manual) 5 % Blood Morphology Comment NORMAL Sodium Level 139 135-145 MMOL/L Potassium Level 4.1 3.6-5.0 MMOL/L Chloride Level 100 98-107 MMOL/L Carbon Dioxide Level 12 L 21-32 MMOL/L Anion Gap 27 H 5-14 MMOL/L Blood Urea Nitrogen 9 7-18 MG/DL Creatinine 1.36 H 0.60-1.30 MG/DL Estimat Glomerular Filtration Rate 75 BUN/Creatinine Ratio 7 Glucose Level 94 70-105 MG/DL Calcium Level 10.0 8.5-10.1 MG/DL Corrected Calcium 8.5-10.1 MG/DL Magnesium Level 2.2 1.6-2.4 MG/DL Total Bilirubin 0.7 0.1-1.0 MG/DL Aspartate Amino Transf (AST/SGOT) 63 H 5-34 U/L Alanine Aminotransferase (ALT/SGPT) 73 H 0-55 U/L Alkaline Phosphatase 91 40-136 U/L Total Protein 8.8 H 6.4-8.2 GM/DL Albumin 5.1 H 3.2-4.5 GM/DL TSH [place] Testing 3.77 0.35-4.94 UIU/ML Glucometer 100 70-110 MG/DL My Orders Orders - SCOTT IVEY MD Ekg Tracing (07/11/23 12:53) Ns Iv 1000 Ml (Ns Iv 1000 Ml) (07/11/23 12:56) Cbc And Automated Diff (07/11/23 12:58) Comprehensive Metabolic Panel (07/11/23 12:58) Magnesium (07/11/23 12:58) Thyroid Analyzer (07/11/23 12:58) Ct Head/Cervical Spine Wo (07/11/23 12:58) Chest 1 View, Ap/Pa Only (07/11/23 12:58) Ns Iv 1000 Ml (Ns Iv 1000 Ml) (07/11/23 12:58) Dipht/Pertuss(Acell)/Tet Adult (Dipht/Pe (07/11/23 13:00) Manual Differential (07/11/23 12:53) Medications Given in ED Current Medications Medications Dose Ordered Sig/Xavi Route Start Time Stop Time Status Last Admin Dose Admin Diphtheria/ Tetanus/Acell Pertussis 0.5 ml ONCE ONCE IM 07/11/23 13:00 07/11/23 13:01 DC 07/11/23 13:24 0.5 ML Vital Signs/I&O 07/11/23 12:50 Temp 35.8 Pulse 110 Resp 18 B/P (MAP) 140/83 (102) Pulse Ox 96 O2 Delivery Room Air Capillary Refill : Blood Pressure Mean: 102 Point of Care Testing Finger Stick Blood Glucose: 100 Progress Note : Progress Note Seen and evaluated. IV, labs, EKG and chest x-ray ordered. Labs include CBC as well as CMP, magnesium and thyroid study. CT of the head and C-spine given the fall and injury as well as get chest x-ray. Monitor patient. Differential diagnosis includes intracranial hemorrhage, C-spine injury, cardiac event, electrolyte abnormality, dehydration 1438: CT of the head and C-spine shows no obvious intracranial hemorrhage or f racture on my interpretation. Chest x-ray shows no acute findings on my interpretation. CBC shows white count of 16.2 with hemoglobin of 17.8 and normal platelets. CMP shows normal electrolytes with slightly elevated serum creatinine and normal blood sugar with slightly elevated LFTs and normal magnesium and thyroid studies. Overall I believe dehydration is likely a component of this and would account for the lab findings. I did discuss with patient and mother regarding follow-up with primary care doctor and we will give cardiology information as well for them to follow-up. Patient was slightly tachycardic on arrival but has improved to the 80s now. He feels comfortable going home and he lives with his mother and she was here and there both report that she is able to keep an eye on him. He is currently not working so he can rest at home and he states he will. Discharged home with return precautions. Patient verbalized understanding of instructions and agreement with plan. Diagnostic Imaging Diagonstic Imaging: Xray Plain Films/CT/US/NM/MRI: chest Comments [facility] [place], [place] NAME: NEFTALI BARCLAY MED REC#: [id number] PT STATUS: REG ER : 2000 PHYSICIAN: SCOTT IVEY MD ADMIT DATE: 07/11/23/ER Draft Date of Exam:07/11/23 CHEST 1 VIEW, AP/PA ONLY INDICATION: Syncope, fall striking head. COMPARISON: 09/14/2022. FINDINGS: Lungs are mildly hyperexpanded in a symmetric fashion. There is some mild prominence and thickening of the central airways, which may reflect a viral pattern or reactive airway disease and bronchitis. No consolidating pneumonia. No chest fracture. No hemothorax. No pneumothorax. IMPRESSION: No post-traumatic sequelae. No pneumonia; however, some mild prominence of the perihilar lung markings and airway thickening as discussed. Dictated on workstation # [id number] Dict: 07/11/23 1319 Trans: 07/11/23 1321 [id number] Interpreted by: MARC PATTERSON Electronically signed by: Conor Imaging: CT Plain Films/CT/US/NM/MRI: c-spine, head Comments [facility] [place] [place] NAME: NEFTALI BARCLAY [facility] REC#: [id number] PT STATUS: REG ER : 2000 PHYSICIAN: SCOTT IVEY MD ADMIT DATE: 07/11/23/ER Draft Date of Exam:07/11/23 CT HEAD/CERVICAL SPINE WO PROCEDURE: CT head and CT cervical spine without contrast. TECHNIQUE: Multiple contiguous axial images were obtained through the brain and cervical spine without the use of intravenous contrast. Sagittal and coronal reformations through the cervical spine were then performed. Auto Exposure Controls were utilized during the CT exam to meet ALARA standards for radiation dose reduction. INDICATION: Passed out with head and neck injury and head and neck pain. CORRELATION is made with prior CT from 04/10/2022. CT HEAD: There is some soft tissue swelling in the right frontal scalp. A small amount of soft tissue gas is present consistent with known laceration. The ventricles and sulci are within normal limits. There is no sulcal effacement or midline shift. No acute intra-axial or extra-axial hemorrhage is detected. Cisterns are patent. Visualized paranasal sinuses are clear. No depressed calvarial fractures are seen. IMPRESSION: Right frontal scalp hematoma and laceration. No acute intracranial process is detected. CT CERVICAL SPINE: There is slight reversal of the normal cervical lordotic curvature. No fractures are identified. The prevertebral tissues are within normal limits. The odontoid is intact. IMPRESSION: There is slight reversal of the normal cervical lordotic curvature. No acute bony abnormality is detected. Dictated on workstation # [id number] Dict: 07/11/23 1330 Trans: 07/11/[address] [facility] [id number] Interpreted by: KALYAN BLACKWELL MD Electronically signed by: Departure Impression Primary Impression: Syncope Qualified Codes: R55 - Syncope and collapse Additional Impressions: Forehead laceration Qualified Codes: S01.81XA - Laceration without foreign body of other part of head, initial encounter Concussion Qualified Codes: S06.0X1A - Concussion with loss of consciousness of 30 minutes or less, initial encounter Dehydration Disposition: HOME, SELF-CARE Condition: Improved Departure-Patient Inst. Decision time for Depature: 14:42 Referrals: [facility] [place] Primary Care Physician ONI COLMENARES MD FACP [facility] Patient Instructions: Laceration Repair With Glue ED, Concussion, Adult (DC), Syncope (fainting), Dehydration, Adult (DC) Add. Discharge Instructions: All discharge instructions reviewed with patient and/or family. Voiced understanding. Drink plenty of fluids and get plenty of rest. Follow-up with primary care doctor for recheck and further evaluation. You may also follow-up with Dr Colmenares, education trainer listed, for recheck and further evaluation as well for the syncopal episode. You need to rest over the next few days. You may shower but do not scrub skin glue wound area. Do not put creams, lotions or ointments over wound as this will cause the glue to prematurely fail. It will likely come off and 5 to 7 days. You may cover the area with a dry Band-Aid as needed. You may use ice packs to area of concern 20 minutes/h as needed over the next 1 to 2 days to reduce swelling and pain. Do not perform high intensity activities until headache has resolved for 7 days. Return for increasing headache, weakness, dizziness, vision or balance problems, worse pain, vomiting or other concerns as needed. SCOTT IVEY MD Jul 11, 2023 14:09
[2023-07-11 14:50] VITALS: BP 136/83
== END 2023-07-11 14:54 | disposition home or self-care (01) ==
LOC: EDUNIT# 12:48 → ER 12:49
DX: S06.0XAA Concussion with loss of consciousness status unknown, initial encounter (principal); S01.81XA Laceration without foreign body of other part of head, initial encounter; R55 Syncope and collapse; Z23 Encounter for immunization; E86.0 Dehydration; W18.30XA Fall on same level, unspecified, initial encounter; Y92.009 Unspecified place in unspecified non-institutional (private) residence as the place of occurrence of the external cause
CPT/HCPCS: 12011; 36415; 70450; 71045; 72125; 80053; 82947; 83735; 84443; 85007; 85027; 90471; 90715; 93005